=== PATIENT | male | born 1995 | race Caucasian/White ===

== ENCOUNTER 2017-06-12 13:29 | Emergency (ER) | payer SELFPAY ==
[2017-06-12] MEDS ORDERED: Sodium Chloride 0.9% 1,000 ML IV ONE (14:30)
--- NOTE | 2017-06-12 16:27 | C.PDOC ---
History Of Present Illness 22 year old male presents to the ED with acute onset left-sided abdominal pain that began earlier today. Patient reports episode is consistent with prior renal colic. Associated with poor PO and fluid intake. States he had a bowel movement today without improvement in symptoms. Time Seen by Provider: 06/12/17 14:19 Chief Complaint (Nursing): Male Genitourinary History Per: Patient History/Exam Limitations: no limitations Onset/Duration Of Symptoms: Days (x1) Current Symptoms Are (Timing): Still Present Past Medical History Reviewed: Historical Data, Nursing Documentation, Vital Signs Vital Signs: Last Vital Signs Temp 97.8 F 06/12/17 13:52 Pulse 66 06/12/17 13:52 Resp 18 06/12/17 13:52 BP 167/106 H 06/12/17 13:52 Pulse Ox 97 06/12/17 17:05 - Medical History PMH: Kidney Stones Surgical History: Hernia Repair Family History: States: Unknown Family Hx - Social History Hx Tobacco Use: No Hx Alcohol Use: No Hx Substance Use: No - Immunization History Hx Tetanus Toxoid Vaccination: No Hx Influenza Vaccination: No Hx Pneumococcal Vaccination: No Review Of Systems Except As Marked, All Systems Reviewed And Found Negative. Constitutional: Negative for: Fever, Chills Gastrointestinal: Positive for: Abdominal Pain. Negative for: Vomiting, Diarrhea, Constipation Physical Exam - Physical Exam Appears: In Acute Distress (mild painful distress) Skin: Normal Color, Warm, Dry Head: Atraumatic, Normacephalic Eye(s): bilateral: Normal Inspection, PERRL, EOMI Oral Mucosa: Moist Neck: Normal ROM, Supple Chest: Symmetrical Cardiovascular: Rhythm Regular, No Murmur Respiratory: Normal Breath Sounds, No Rales, No Rhonchi, No Wheezing Gastrointestinal/Abdominal: Bowel Sounds (active), Soft, No Tenderness, Other ( obese abdomen) Back: Normal Inspection, No CVA Tenderness, No Vertebral Tenderness Extremity: Bilateral: Atraumatic, Normal Color And Temperature, Normal ROM Neurological/Psych: Oriented x3, Normal Speech ED Course And Treatment O2 Sat by Pulse Oximetry: 97 (RA) Pulse Ox Interpretation: Normal Medical Decision Making Medical Decision Making: Impression: recurrent nephrolithiasis dx by mild hematuria and typical presentation last episode 1 yr ago lost to Urology f/u- Dr. Lito Augustine Gear Grinder- Pt defers repeat w/u and CT with informed consent and supported by AMA recommendations to NOT CT every renal colic Disposition Doctor Will See Patient In The: Office Counseled Patient/Family Regarding: Studies Performed, Diagnosis - Disposition Referrals: Nader Augustine MD [Staff Provider] - Disposition: HOME/ ROUTINE Disposition Time: 17:05 Condition: GOOD Additional Instructions: drink plenty of water to help pass stone. strain all urine to find renal stone motrin 600 mg every 6 hours as needed Flomax 0.4 mg daily to help move suspected renal stone along follow-up with Dr. Lito Augustine- Urology Gear Grinder as needed Call for an appointment. Prescriptions: Tamsulosin [Flomax] 0.4 mg PO DAILY #7 cap Instructions: Kidney Stones in Adults Forms: [facility] ([facility]) - Clinical Impression Clinical Impression: Nephrolithiasis - Scribe Statement The provider has reviewed the documentation as recorded by the Scribe (Malia Knight) Provider Attestation: All medical record entries made by the Scribe were at my direction and personally dictated by me. I have reviewed the chart and agree that the record accurately reflects my personal performance of the history, physical exam, medical decision making, and the department course for this patient. I have also personally directed, reviewed, and agree with the discharge instructions and disposition.
[2017-06-12 16:34] LABS: SQUAMOUS EPITHIAL < 1 /hpf (0-5); URINE BILIRUBIN NEGATIVE (NEGATIVE); URINE BLOOD 3+ (NEGATIVE); URINE CLARITY Hazy (Clear); URINE COLOR Yellow (YELLOW); URINE GLUCOSE (UA) NORMAL (Normal); URINE LEUKOCYTE ESTERASE NEG Leu/uL (Negative); URINE PROTEIN 1+ mg/dL (NEGATIVE); URINE UROBILINOGEN NORMAL mg/dL (0.2-1.0)
[2017-06-12 17:23] VITALS: BP 153/88; PULSE 75; RESP 19; TEMP 98.3; O2SAT 99
== END 2017-06-12 17:23 | disposition home or self-care (01) ==
LOC: C.ER 13:29
DX: N20.0 Calculus of kidney (principal); Z87.442 Personal history of urinary calculi
CPT/HCPCS: 81001; 96361; 96374; 99284; J1885; J7040